=== PATIENT | male | born 1935 | race Caucasian/White ===

== ENCOUNTER 2021-12-28 10:58 | Inpatient (IN) | payer MEDICARE ==
[2021-12-28] MEDS ORDERED: Atropine Sulfate 1 mg/10 ml Syringe ONE (11:00)
[2021-12-28] MEDS ORDERED: NOREPINEPHRINE 8 MG/250 ML-D5W 250 ML ONE (11:00)
[2021-12-28] MEDS ORDERED: Calcium Gluc 4.6 MEQ/10 ML (100 MG/ML) ONE ×2 (11:05→11:06)
[2021-12-28] MEDS ORDERED: EPINEPHrine 1 MG/ML AMP ONE (11:29)
[2021-12-28 11:34] LABS: Hemoglobin 9.2 g/dL (13.5-17.5); Mean Corpuscular HGB CONC 31.5 g/dL (32.0-36.0); Mean Corpuscular Hemoglobin 29.2 pg (27.0-33.0); Mean Corpuscular Volume 92.7 fl (81.2-95.1); Mean Platelet Volume 9.7 fl (7.4-10.4); Platelet Count 205 10x3/uL (150-450); RBC Distribution Width 14.2 % (11.5-14.5); Red Blood Cell (RBC) Count 3.15 10x6/uL (4.32-5.72); White Blood Cell (WBC) Count 12.4 10x3/uL (3.5-10.5)
[2021-12-28 11:37] LABS: MDiff Complete? YES
[2021-12-28] MEDS ORDERED: Aspirin Chewable 81 MG TAB ONE (11:39)
[2021-12-28] MEDS ORDERED: diphenhydrAMINE 50 MG/ML VIAL ONE (11:39)
[2021-12-28] MEDS ORDERED: methylPREDNISolone Sod Succ/PF 125 MG/2 ML VIAL ONE (11:39)
[2021-12-28 11:40] LABS: ALT (SGPT) 15 U/L (8-55); AST (SGOT) 21 U/L (5-34); Alkaline Phosphatase 58 U/L (40-110); Anion Gap 11 mmol/L (10-20); BUN (Urea Nitrogen) 24 mg/dL (8.4-25.7); Bilirubin, Total 0.4 mg/dL (0.2-1.2); Calc. Creatinine Clearance 0 mL/min (70-130); Calcium 8.2 mg/dL (7.8-10.44); Carbon Dioxide 24 mmol/L (23-31); Chloride 111 mmol/L (98-107); Estimated GFR 56; Globulin 1.7 g/dL (2.4-3.5); Glucose 111 mg/dL (83-110); Potassium 4.1 mmol/L (3.5-5.1); Protein, Total 4.7 g/dL (5.8-8.1); Sodium 142 mmol/L (136-145)
[2021-12-28] MEDS ORDERED: EPINEPHrine 4 MG in Dextrose 5% in Water 250 ML IV SCH (12:00)
[2021-12-28 12:01] LABS: CKMB 1.8 ng/mL (0-6.6); PTT 27.1 sec (22.0-33.0); Prothrombin Time 11.2 sec (9.5-12.1)
[2021-12-28 12:03] LABS: Eosinophils 4 % (0-10); Lymphocytes 38 % (21-51)
[2021-12-28 12:04] LABS: Monocytes 5 % (0-10); Neutrophil 52 % (42-75)
[2021-12-28 12:05] LABS: Magnesium 1.8 mg/dL (1.6-2.6)
[2021-12-28 12:06] LABS: Platelet Morphology Comment Appears Adequate; RBC Morphology Normal
[2021-12-28] MEDS ORDERED: Cefepime 2 GM VIAL ONE (12:28)
[2021-12-28] MEDS ORDERED: Iopamidol 370 76% 100 ML VIAL ONE (12:49)
[2021-12-28 15:32] LABS: Lactic Acid 1.1 mmol/L (0.5-2.2)
[2021-12-28 16:22] LABS: Troponin I 0.043 ng/mL (< 0.028)
[2021-12-28] MEDS ORDERED: Labetalol HCl 100 MG/20 ML VIAL SLOW IVP PRN (16:23)
[2021-12-28] MEDS ORDERED: Labetalol HCl 100 MG/20 ML VIAL SLOW IVP SCH (16:30)
[2021-12-28 16:42] VITALS: BMI 26.4
[2021-12-28] MEDS ORDERED: Metoprolol Tartrate 50 MG TAB PO SCH (17:17)
[2021-12-28] MEDS ORDERED: Ondansetron ODT 4 MG TAB PO PRN (17:24)
[2021-12-28] MEDS ORDERED: Ondansetron PF 4 MG/2 ML Vial IVP PRN (17:24)
[2021-12-28] MEDS ORDERED: Acetaminophen 650 MG Suppository PR PRN (17:24)
[2021-12-28] MEDS ORDERED: Acetaminophen 325 MG TAB PO PRN (17:24)
[2021-12-28 17:30] LABS: SARS-CoV-2 NAA Rapid Test Not Detected (NotDetected)
[2021-12-28] MEDS ORDERED: niCARdipine 25 MG in Sodium Chloride 0.9% 250 ML 250 ML IVPB SCH (17:30)
[2021-12-28] MEDS ORDERED: Furosemide 20 MG/2 ML VIAL SLOW IVP SCH (18:00)
[2021-12-28] MEDS ORDERED: FLU VACC QS2022-23(65YR UP)/PF 240 MCG/0.7 ML SYRINGE IM ONE (18:30)
[2021-12-28] MEDS: Enalaprilat Dihydrate 2.5 MG in Dextrose 5% in Water 50 ML IVPB SCH ×2 (18:41→23:59)
[2021-12-28 18:48] LABS: Troponin I 0.041 ng/mL (< 0.028)
[2021-12-28] MEDS: Enoxaparin Sodium 80 MG/0.8 ML SYRINGE SC SCH (20:27)
[2021-12-28] MEDS: Tamsulosin HCl 0.4 MG CAP PO SCH (20:27)
[2021-12-28] MEDS: Metoprolol Tartrate 25 MG TAB PO SCH (20:28)
[2021-12-28] MEDS: Atorvastatin Calcium 40 MG TAB PO SCH (20:28)
[2021-12-28] MEDS ORDERED: traMADol HCl 50 MG TAB PO SCH (21:30)
[2021-12-28] MEDS ORDERED: Gabapentin 300 MG CAP PO SCH (21:30)
[2021-12-29 04:07] LABS: Hemoglobin 9.6 g/dL (13.5-17.5); Mean Corpuscular HGB CONC 32.5 g/dL (32.0-36.0); Mean Corpuscular Hemoglobin 29.7 pg (27.0-33.0); Mean Corpuscular Volume 91.3 fl (81.2-95.1); Mean Platelet Volume 9.6 fl (7.4-10.4); Platelet Count 244 10x3/uL (150-450); RBC Distribution Width 14.1 % (11.5-14.5); Red Blood Cell (RBC) Count 3.23 10x6/uL (4.32-5.72); White Blood Cell (WBC) Count 21.2 10x3/uL (3.5-10.5)
[2021-12-29 04:18] LABS: Anion Gap 15 mmol/L (10-20); BUN (Urea Nitrogen) 33 mg/dL (8.4-25.7); Calc. Creatinine Clearance 40 mL/min (70-130); Calcium 8.3 mg/dL (7.8-10.44); Carbon Dioxide 25 mmol/L (23-31); Chloride 107 mmol/L (98-107); Estimated GFR 46; Glucose 173 mg/dL (83-110); Potassium 4.5 mmol/L (3.5-5.1); Sodium 142 mmol/L (136-145)
[2021-12-29] MEDS: Enalaprilat Dihydrate 2.5 MG in Dextrose 5% in Water 50 ML IVPB SCH (05:20)
[2021-12-29] MEDS: Furosemide 20 MG/2 ML VIAL SLOW IVP SCH ×2 (05:20→14:14)
[2021-12-29 06:34] LABS: MDiff Complete? YES; Platelet Morphology Comment Appears Adequate
[2021-12-29 06:37] LABS: Band 1 % (5-11); Lymphocytes 32 % (21-51); Monocytes 6 % (0-10); Neutrophil 56 % (42-75); Reactive Lymphocytes 5 % (0-10)
[2021-12-29] MEDS ORDERED: Enoxaparin Sodium 80 MG/0.8 ML SYRINGE ONE (08:29)
[2021-12-29] MEDS: Aspirin 81 mg Enteric Coated Tablet PO SCH (08:31)
[2021-12-29] MEDS: Metoprolol Tartrate 25 MG TAB PO SCH ×2 (08:31→20:13)
[2021-12-29] MEDS: Enoxaparin Sodium 80 MG/0.8 ML SYRINGE SC SCH (08:31)
[2021-12-29] MEDS ORDERED: traMADol HCl 50 MG TAB PO PRN (10:55)
[2021-12-29] MEDS ORDERED: Enalaprilat Dihydrate 2.5 MG in Dextrose 5% in Water 50 ML IVPB PRN (11:15)
[2021-12-29] MEDS: Gabapentin 300 MG CAP PO SCH ×2 (14:14→20:13)
[2021-12-29] MEDS: Dronedarone HCl 400 MG TAB PO SCH (16:46)
[2021-12-29] MEDS: Atorvastatin Calcium 40 MG TAB PO SCH (20:13)
[2021-12-29] MEDS: Apixaban 2.5 MG TAB PO SCH (20:13)
[2021-12-29] MEDS: Tamsulosin HCl 0.4 MG CAP PO SCH (20:14)
[2021-12-30 04:31] LABS: Anion Gap 12 mmol/L (10-20); BUN (Urea Nitrogen) 46 mg/dL (8.4-25.7); Calc. Creatinine Clearance 35 mL/min (70-130); Calcium 8.2 mg/dL (7.8-10.44); Carbon Dioxide 27 mmol/L (23-31); Chloride 105 mmol/L (98-107); Estimated GFR 39; Glucose 98 mg/dL (83-110); Potassium 3.9 mmol/L (3.5-5.1); Sodium 140 mmol/L (136-145)
[2021-12-30 04:53] LABS: Hemoglobin 8.7 g/dL (13.5-17.5); Mean Corpuscular HGB CONC 32.3 g/dL (32.0-36.0); Mean Corpuscular Hemoglobin 29.3 pg (27.0-33.0); Mean Corpuscular Volume 90.6 fl (81.2-95.1); Mean Platelet Volume 10.1 fl (7.4-10.4); Platelet Count 228 10x3/uL (150-450); Red Blood Cell (RBC) Count 2.97 10x6/uL (4.32-5.72); White Blood Cell (WBC) Count 19.8 10x3/uL (3.5-10.5)
[2021-12-30 04:54] LABS: MDiff Complete? YES
[2021-12-30] MEDS: Furosemide 20 MG/2 ML VIAL SLOW IVP SCH (05:02)
[2021-12-30 05:57] LABS: Eosinophils 2 % (0-10); Lymphocytes 41 % (21-51); Monocytes 4 % (0-10); Neutrophil 46 % (42-75); Reactive Lymphocytes 7 % (0-10)
[2021-12-30 06:09] LABS: Anisocytosis SLIGHT = 6-15 cells (100X) (0-5/hpf); Hypochromia SLIGHT = 6-15 cells (100X) (0-5/hpf); Platelet Morphology Comment Appears Adequate; Schistocytes SLIGHT = 2-5 cells (100X) (0-1/hpf)
[2021-12-30] MEDS: Dronedarone HCl 400 MG TAB PO SCH ×2 (07:36→16:41)
[2021-12-30] MEDS: Gabapentin 300 MG CAP PO SCH ×3 (07:36→21:28)
[2021-12-30] MEDS: Metoprolol Tartrate 25 MG TAB PO SCH ×2 (07:37→23:14)
[2021-12-30] MEDS: Aspirin 81 mg Enteric Coated Tablet PO SCH (07:37)
[2021-12-30] MEDS: Apixaban 2.5 MG TAB PO SCH ×2 (07:37→21:28)
[2021-12-30] MEDS ORDERED: Sodium Chloride 0.9% 500 ML IV SCH (12:00)
[2021-12-30] MEDS: Tamsulosin HCl 0.4 MG CAP PO SCH (21:28)
[2021-12-30] MEDS: Atorvastatin Calcium 40 MG TAB PO SCH (21:28)
[2021-12-31 04:08] LABS: Hemoglobin 8.8 g/dL (13.5-17.5); Mean Corpuscular HGB CONC 32.5 g/dL (32.0-36.0); Mean Corpuscular Hemoglobin 29.6 pg (27.0-33.0); Mean Corpuscular Volume 91.2 fl (81.2-95.1); Mean Platelet Volume 9.8 fl (7.4-10.4); Platelet Count 212 10x3/uL (150-450); RBC Distribution Width 13.9 % (11.5-14.5); Red Blood Cell (RBC) Count 2.97 10x6/uL (4.32-5.72); White Blood Cell (WBC) Count 16.9 10x3/uL (3.5-10.5)
[2021-12-31 04:12] LABS: MDiff Complete? YES
[2021-12-31 04:18] LABS: Anion Gap 9 mmol/L (10-20); BUN (Urea Nitrogen) 43 mg/dL (8.4-25.7); Calc. Creatinine Clearance 39 mL/min (70-130); Carbon Dioxide 29 mmol/L (23-31); Chloride 107 mmol/L (98-107); Estimated GFR 43; Glucose 104 mg/dL (83-110); Potassium 3.4 mmol/L (3.5-5.1); Sodium 142 mmol/L (136-145)
[2021-12-31 05:05] LABS: Eosinophils 1 % (0-10); Lymphocytes 47 % (21-51); Monocytes 5 % (0-10); Neutrophil 45 % (42-75); Reactive Lymphocytes 2 % (0-10)
[2021-12-31 05:08] LABS: Hypochromia SLIGHT = 6-15 cells (100X) (0-5/hpf); Ovalocytes SLIGHT = 2-5 cells (100X) (0-1/hpf); Platelet Morphology Comment Appears Adequate; Polychromasia SLIGHT = 2-3 cells (100X) (0-2/hpf)
[2021-12-31] MEDS: Dronedarone HCl 400 MG TAB PO SCH ×2 (08:51→16:43)
[2021-12-31] MEDS: Aspirin 81 mg Enteric Coated Tablet PO SCH (08:51)
[2021-12-31] MEDS: Gabapentin 300 MG CAP PO SCH ×3 (08:51→20:46)
[2021-12-31] MEDS: Metoprolol Tartrate 25 MG TAB PO SCH ×2 (08:51→21:33)
[2021-12-31] MEDS: Apixaban 2.5 MG TAB PO SCH ×2 (08:52→20:47)
[2021-12-31 10:31] LABS: Magnesium 1.9 mg/dL (1.6-2.6)
[2021-12-31] MEDS ORDERED: Potassium Chloride 20 MEQ TAB PO SCH (11:00)
[2021-12-31] MEDS ORDERED: Furosemide 20 MG TAB PO SCH (12:00)
[2021-12-31] MEDS: Tamsulosin HCl 0.4 MG CAP PO SCH (20:46)
[2021-12-31] MEDS: Atorvastatin Calcium 40 MG TAB PO SCH (20:47)
[2022-01-01 04:35] LABS: Anion Gap 10 mmol/L (10-20); BUN (Urea Nitrogen) 35 mg/dL (8.4-25.7); Calc. Creatinine Clearance 47 mL/min (70-130); Calcium 8.4 mg/dL (7.8-10.44); Carbon Dioxide 30 mmol/L (23-31); Chloride 107 mmol/L (98-107); Estimated GFR 54; Glucose 96 mg/dL (83-110); Potassium 4.5 mmol/L (3.5-5.1); Sodium 142 mmol/L (136-145)
[2022-01-01 04:44] LABS: Hemoglobin 9.5 g/dL (13.5-17.5); Mean Corpuscular HGB CONC 31.6 g/dL (32.0-36.0); Mean Corpuscular Hemoglobin 28.8 pg (27.0-33.0); Mean Corpuscular Volume 91.2 fl (81.2-95.1); Mean Platelet Volume 10.2 fl (7.4-10.4); Platelet Count 239 10x3/uL (150-450); RBC Distribution Width 13.7 % (11.5-14.5); White Blood Cell (WBC) Count 17.6 10x3/uL (3.5-10.5)
[2022-01-01 04:57] LABS: MDiff Complete? YES
[2022-01-01] MEDS: Metoprolol Tartrate 25 MG TAB PO SCH ×2 (05:30→20:50)
[2022-01-01 06:25] LABS: Eosinophils 3 % (0-10); Lymphocytes 58 % (21-51); Monocytes 8 % (0-10); Neutrophil 28 % (42-75); Reactive Lymphocytes 3 % (0-10)
[2022-01-01 06:34] LABS: Macrocytosis SLIGHT = 6-15 cells (100X) (0-5/hpf); Platelet Morphology Comment Appears Adequate
[2022-01-01] MEDS: Dronedarone HCl 400 MG TAB PO SCH ×2 (09:16→16:52)
[2022-01-01] MEDS: Aspirin 81 mg Enteric Coated Tablet PO SCH (09:17)
[2022-01-01] MEDS: Apixaban 2.5 MG TAB PO SCH ×2 (09:17→20:50)
[2022-01-01] MEDS: Gabapentin 300 MG CAP PO SCH ×3 (09:17→20:49)
[2022-01-01] MEDS ORDERED: hydrALAZINE 20 MG/ML VIAL SLOW IVP SCH (13:00)
[2022-01-01] MEDS: Atorvastatin Calcium 40 MG TAB PO SCH (20:50)
[2022-01-01] MEDS: Tamsulosin HCl 0.4 MG CAP PO SCH (20:50)
[2022-01-02 04:52] LABS: Hemoglobin 9.2 g/dL (13.5-17.5); Mean Corpuscular HGB CONC 32.2 g/dL (32.0-36.0); Mean Corpuscular Hemoglobin 29.2 pg (27.0-33.0); Mean Corpuscular Volume 90.8 fl (81.2-95.1); Mean Platelet Volume 10.2 fl (7.4-10.4); Platelet Count 221 10x3/uL (150-450); RBC Distribution Width 13.6 % (11.5-14.5); Red Blood Cell (RBC) Count 3.15 10x6/uL (4.32-5.72); White Blood Cell (WBC) Count 16.6 10x3/uL (3.5-10.5)
[2022-01-02 04:54] LABS: MDiff Complete? YES
[2022-01-02 05:07] LABS: Anion Gap 10 mmol/L (10-20); BUN (Urea Nitrogen) 32 mg/dL (8.4-25.7); Calc. Creatinine Clearance 49 mL/min (70-130); Calcium 8.3 mg/dL (7.8-10.44); Carbon Dioxide 28 mmol/L (23-31); Chloride 107 mmol/L (98-107); Estimated GFR 57; Glucose 91 mg/dL (83-110); Potassium 4.3 mmol/L (3.5-5.1); Sodium 141 mmol/L (136-145)
[2022-01-02 06:44] LABS: Eosinophils 4 % (0-10); Lymphocytes 47 % (21-51); Monocytes 5 % (0-10); Neutrophil 41 % (42-75); Reactive Lymphocytes 3 % (0-10)
[2022-01-02 06:45] LABS: Macrocytosis SLIGHT = 6-15 cells (100X) (0-5/hpf); Platelet Morphology Comment Appears Adequate
[2022-01-02] MEDS: Aspirin 81 mg Enteric Coated Tablet PO SCH (08:58)
[2022-01-02] MEDS: Metoprolol Tartrate 25 MG TAB PO SCH (08:58)
[2022-01-02] MEDS: Gabapentin 300 MG CAP PO SCH ×3 (08:58→20:32)
[2022-01-02] MEDS: Dronedarone HCl 400 MG TAB PO SCH ×2 (08:59→17:27)
[2022-01-02] MEDS: Apixaban 2.5 MG TAB PO SCH ×2 (08:59→20:32)
[2022-01-02] MEDS: Amlodipine 5 MG TAB PO SCH (10:00)
[2022-01-02] MEDS: Atorvastatin Calcium 40 MG TAB PO SCH (20:32)
[2022-01-02] MEDS: Tamsulosin HCl 0.4 MG CAP PO SCH (20:32)
[2022-01-03 05:15] LABS: Anion Gap 10 mmol/L (10-20); BUN (Urea Nitrogen) 33 mg/dL (8.4-25.7); Calc. Creatinine Clearance 45 mL/min (70-130); Calcium 8.7 mg/dL (7.8-10.44); Carbon Dioxide 29 mmol/L (23-31); Chloride 107 mmol/L (98-107); Estimated GFR 51; Glucose 91 mg/dL (83-110); Potassium 4.4 mmol/L (3.5-5.1); Sodium 142 mmol/L (136-145)
[2022-01-03 05:28] LABS: Hemoglobin 9.4 g/dL (13.5-17.5); Mean Corpuscular Hemoglobin 28.8 pg (27.0-33.0); Mean Corpuscular Volume 90.2 fl (81.2-95.1); Mean Platelet Volume 10.2 fl (7.4-10.4); Platelet Count 251 10x3/uL (150-450); RBC Distribution Width 13.5 % (11.5-14.5); Red Blood Cell (RBC) Count 3.26 10x6/uL (4.32-5.72); White Blood Cell (WBC) Count 18.9 10x3/uL (3.5-10.5)
[2022-01-03 06:16] LABS: MDiff Complete? YES
[2022-01-03 06:19] LABS: Band 2 % (5-11); Eosinophils 5 % (0-10); Lymphocytes 56 % (21-51); Monocytes 2 % (0-10); Neutrophil 35 % (42-75)
[2022-01-03 06:21] LABS: Platelet Morphology Comment Appears Adequate
[2022-01-03 06:22] LABS: RBC Morphology Normal
[2022-01-03] MEDS: Dronedarone HCl 400 MG TAB PO SCH (08:48)
[2022-01-03] MEDS: Amlodipine 5 MG TAB PO SCH (08:49)
[2022-01-03] MEDS: Gabapentin 300 MG CAP PO SCH (08:49)
[2022-01-03] MEDS: Apixaban 2.5 MG TAB PO SCH (08:49)
[2022-01-03 12:50] VITALS: BP 155/90; TEMP 98.2
== END 2022-01-03 15:06 | disposition home health service (06) | DRG 309 ==
LOC: CSHERS 10:58 → CSHICU 15:59 → CSHTELE 12-31 15:34
PROVIDERS: ADMIT Family Medicine; ATTEND Family Medicine
DX: I48.0 Paroxysmal atrial fibrillation (principal); C95.90 Leukemia, unspecified not having achieved remission; J90 Pleural effusion, not elsewhere classified; Z20.822 Contact with and (suspected) exposure to COVID-19; T46.1X5A Adverse effect of calcium-channel blockers, initial encounter; I45.81 Long QT syndrome; R00.1 Bradycardia, unspecified; I95.9 Hypotension, unspecified; D64.9 Anemia, unspecified; I10 Essential (primary) hypertension; E78.5 Hyperlipidemia, unspecified; Z85.72 Personal history of non-Hodgkin lymphomas; Z88.8 Allergy status to other drugs, medicaments and biological substances; Z79.899 Other long term (current) drug therapy; Z79.82 Long term (current) use of aspirin; R79.89 Other specified abnormal findings of blood chemistry
CPT/HCPCS: 36415; 70450; 71045; 71275; 74174; 74176; 80048; 80053; 82553; 83605; 83735; 83880; 84443; 84484; 85025; 85610; 85730; 87040; 87086; 93005; 93010; 93306; 94660; 94760; 94762; 96365; 96367; 96368; 96372; 96375; J0171; J0360; J0461; J0610; J0692; J1200; J1650; J1940; J2930; J3370; J7030; J7050; J7070; Q9967; U0002